=== PATIENT | female | born 1995 | race Caucasian/White ===

== ENCOUNTER 2019-10-19 19:30 | Emergency (ER) | payer BC, SELFPAY ==
[2019-10-19] MEDS ORDERED: LORazepam 0.5 MG Tab PO ONE (20:07)
--- NOTE | 2019-10-19 20:09 | EDM.PDOC ---
ED HPI GENERAL MEDICAL PROBLEM - General Chief Complaint: Chest Pain Stated Complaint: CHEST PAIN EVELATED PULSE Time Seen by Provider: 10/19/19 20:01 Source of Information: Reports: Patient, Family, RN Notes Reviewed History Limitations: Reports: No Limitations - History of Present Illness INITIAL COMMENTS - FREE TEXT/NARRATIVE: 24-year-old female presents emergency department a complaint of chest pain, she has had problems with palpitations is currently being evaluated by her primary care provider has completed a 48-hour Holter monitor however has not received results yet. She states the chest pain became worse today she has had a few events in the past but very short in duration. This particular event started at 630 this evening noticed that her heart was beating fast and that she feels more short of breath the only medication she takes is injectable control - Related Data Allergies Allergy/AdvReac Type Severity Reaction Status Date / Time No Known Allergies Allergy Verified 10/19/19 19:51 Home Meds: Home Meds medroxyPROGESTERone Acetate [Depo-Subq Provera 104] 104 mg SQ ASDIRECTED [History] Past Medical History - Past Health History Medical/Surgical History: Denies Medical/Surgical History Social & Family History - Tobacco Use Smoking Status *Q: Never Smoker ED ROS GENERAL - Review of Systems Review Of Systems: See Below Constitutional: Reports: No Symptoms HEENT: Reports: No Symptoms Respiratory: Reports: Shortness of Breath Cardiovascular: Reports: Chest Pain, Palpitations GI/Abdominal: Reports: No Symptoms : Reports: No Symptoms Musculoskeletal: Reports: No Symptoms ED EXAM, GENERAL - Physical Exam Exam: See Below Exam Limited By: No Limitations General Appearance: Alert, WD/WN, No Apparent Distress Respiratory/Chest: No Respiratory Distress, Lungs Clear, Normal Breath Sounds, No Accessory Muscle Use, Chest Non-Tender Cardiovascular: No Murmur, Tachycardia GI/Abdominal: Soft, Non-Tender Course - Vital Signs Last Recorded V/S: Last Vital Signs Temp 98.0 F 10/19/19 19:58 Pulse 117 H 10/19/19 23:50 Resp 23 H 10/19/19 23:50 BP 128/86 10/19/19 23:50 Pulse Ox 97 10/19/19 23:50 - Orders/Labs/Meds Orders: Active Orders 24 hr Category Date Time Status Cardiac Monitoring [RC] .As Directed Care 10/19/19 20:06 Active EKG Documentation Completion [RC] ASDIRECTED Care 10/19/19 20:06 Active Peripheral IV Care [RC] . DIRECTED Care 10/19/19 22:02 Active Iopamidol [Isovue-370 (76%)] Med 10/19/19 22:30 Active 100 ml IV . DIRECTED Sodium Chloride 0.9% [Normal Saline] 1,000 ml Med 10/19/19 22:15 Active IV ASDIRECTED Sodium Chloride 0.9% [Normal Saline] 100 ml Med 10/19/19 22:30 Active IV ASDIRECTED Sodium Chloride 0.9% [Saline Flush] Med 10/19/19 22:02 Active 10 ml FLUSH ASDIRECTED PRN Peripheral IV Insertion Adult [OM.PC] Urgent Oth 10/19/19 22:02 Ordered EKG 12 Lead [EK] Stat Ther 10/19/19 20:06 Ordered Medication Orders Sodium Chloride (Normal Saline) 1,000 mls @ 500 mls/hr IV ASDIRECTED [facility] Last Admin: 10/19/19 22:46 Dose: 500 mls/hr Sodium Chloride (Normal Saline) 100 mls @ 3.5 mls/sec IV ASDIRECTED [facility] Last Admin: 10/19/19 22:29 Dose: 3.5 mls/sec Iopamidol (Isovue-370 (76%)) 100 ml IV . DIRECTED [facility] Last Admin: 10/19/19 22:29 Dose: 100 ml Sodium Chloride (Saline Flush) 10 ml FLUSH ASDIRECTED PRN PRN Reason: Keep Vein Open Last Admin: 10/19/19 22:28 Dose: 10 ml Admin: 10/19/19 22:21 Dose: 10 ml Labs: Laboratory Tests 10/19/19 10/19/19 10/19/19 Range/Units 20:21 20:21 20:21 WBC 7.8 (4.5-11.0) K/uL RBC 4.78 (3.30-5.50) M/uL Hgb 13.8 (12.0-15.0) g/dL Hct 43.0 (36.0-48.0) % MCV 90 (80-98) fL MCH 29 (27-31) pg MCHC 32 (32-36) % Plt Count 314 (150-400) K/uL Neut % (Auto) 70 H (36-66) % Lymph % (Auto) 19 L (24-44) % [place] % (Auto) 9 H (2-6) % Eos % (Auto) 2 (2-4) % Baso % (Auto) 0 (0-1) % D-Dimer, Quantitative 568 H (0.0-400.0) ng/mL Sodium 142 (140-148) mmol/L Potassium 4.6 (3.6-5.2) mmol/L Chloride 105 (100-108) mmol/L Carbon Dioxide 27 (21-32) mmol/L Anion Gap 10.4 (5.0-14.0) mmol/L BUN 9 (7-18) mg/dL Creatinine 0.8 (0.6-1.0) mg/dL Est Cr Clr Drug Dosing 88.93 mL/min Estimated GFR (MDRD) > 60 (>60) Glucose 103 (74-106) mg/dL Calcium 9.2 (8.5-10.1) mg/dL Total Bilirubin 0.6 (0.2-1.0) mg/dL AST 17 (15-37) U/L ALT 25 (12-78) U/L Alkaline Phosphatase 83 (46-116) U/L Troponin I < 0.017 (0.000-0.056) ng/mL Total Protein 7.7 (6.4-8.2) g/dL Albumin 3.9 (3.4-5.0) g/dL Globulin 3.8 H (2.3-3.5) g/dL Albumin/Globulin Ratio 1.0 L (1.2-2.2) Urine Opiates Screen (NEGATIVE) Ur Oxycodone Screen (NEGATIVE) Urine Methadone Screen (NEGATIVE) Ur Propoxyphene Screen (NEGATIVE) Ur Barbiturates Screen (NEGATIVE) Ur Tricyclics Screen (NEGATIVE) Ur Phencyclidine Scrn (NEGATIVE) Ur Amphetamine Screen (NEGATIVE) U Methamphetamines Scrn (NEGATIVE) Urine MDMA Screen (NEGATIVE) U Benzodiazepines Scrn (NEGATIVE) U Cocaine Metab Screen (NEGATIVE) U Marijuana (THC) Screen (NEGATIVE) 10/19/19 Range/Units 21:07 WBC (4.5-11.0) K/uL RBC (3.30-5.50) M/uL Hgb (12.0-15.0) g/dL Hct (36.0-48.0) % MCV (80-98) fL MCH (27-31) pg MCHC (32-36) % Plt Count (150-400) K/uL Neut % (Auto) (36-66) % Lymph % (Auto) (24-44) % [place] % (Auto) (2-6) % Eos % (Auto) (2-4) % Baso % (Auto) (0-1) % D-Dimer, Quantitative (0.0-400.0) ng/mL Sodium (140-148) mmol/L Potassium (3.6-5.2) mmol/L Chloride (100-108) mmol/L Carbon Dioxide (21-32) mmol/L Anion Gap (5.0-14.0) mmol/L BUN (7-18) mg/dL Creatinine (0.6-1.0) mg/dL Est Cr Clr Drug Dosing mL/min Estimated GFR (MDRD) (>60) Glucose (74-106) mg/dL Calcium (8.5-10.1) mg/dL Total Bilirubin (0.2-1.0) mg/dL AST (15-37) U/L ALT (12-78) U/L Alkaline Phosphatase (46-116) U/L Troponin I (0.000-0.056) ng/mL Total Protein (6.4-8.2) g/dL Albumin (3.4-5.0) g/dL Globulin (2.3-3.5) g/dL Albumin/Globulin Ratio (1.2-2.2) Urine Opiates Screen Negative (NEGATIVE) Ur Oxycodone Screen Negative (NEGATIVE) Urine Methadone Screen Negative (NEGATIVE) Ur Propoxyphene Screen Negative (NEGATIVE) Ur Barbiturates Screen Negative (NEGATIVE) Ur Tricyclics Screen Negative (NEGATIVE) Ur Phencyclidine Scrn Negative (NEGATIVE) Ur Amphetamine Screen Negative (NEGATIVE) U Methamphetamines Scrn Negative (NEGATIVE) Urine MDMA Screen Negative (NEGATIVE) U Benzodiazepines Scrn Negative (NEGATIVE) U Cocaine Metab Screen Negative (NEGATIVE) U Marijuana (THC) Screen Negative (NEGATIVE) Meds: Medications Generic Name Dose Route Start Last Admin Trade Name Freq PRN Reason Stop Dose Admin Sodium Chloride 1,000 mls @ 500 mls/hr 10/19/19 22:15 10/19/19 22:46 Normal Saline IV 500 mls/hr ASDIRECTED GREG Administration Sodium Chloride 100 mls @ 3.5 mls/sec 10/19/19 22:30 10/19/19 22:29 Normal Saline IV 3.5 mls/sec ASDIRECTED GREG Administration Iopamidol 100 ml 10/19/19 22:30 10/19/19 22:29 Isovue-370 (76%) IV 100 ml . DIRECTED GREG Administration Sodium Chloride 10 ml 10/19/19 22:02 10/19/19 22:28 Saline Flush FLUSH 10 ml ASDIRECTED PRN Administration Keep Vein Open Discontinued Medications Generic Name Dose Route Start Last Admin Trade Name Freq PRN Reason Stop Dose Admin Acetaminophen 650 mg 10/19/19 22:02 10/19/19 22:19 Tylenol PO 10/19/19 22:03 650 mg NOW ONE Administration Al Hydroxide/Mg Hydroxide 15 0 ml 10/19/19 23:33 10/19/19 23:40 ml/ Lidocaine HCl 15 ml PO 10/19/19 23:34 30 ml ONETIME ONE Administration Lorazepam 0.5 mg 10/19/19 20:07 10/19/19 20:14 Ativan PO 10/19/19 20:08 0.5 mg ONETIME ONE Administration Sodium Chloride 10 ml 10/19/19 22:16 Saline Flush FLUSH 10/19/19 22:17 ONETIME ONE Departure - Departure Time of Disposition: 00:21 Disposition: Home, Self-Care 01 Condition: Fair Clinical Impression: Atypical chest pain Referrals: Mica Alves CNM [Primary Care Provider] - Forms: ED Department Discharge Additional Instructions: Please followup with your primary care provider in 1-2 days if not better, please call return to the emergency department with worsening of symptoms. Sepsis Event Note - Evaluation Sepsis Screening Result: No Definite Risk - Focused Exam Vital Signs: Vital Signs Temp Pulse Resp BP Pulse Ox 10/19/19 23:35 108 H 17 129/68 98 10/19/19 23:05 114 H 21 H 136/84 96 10/19/19 22:06 117 H 23 H 128/86 97 10/19/19 21:41 107 H 19 130/74 99 10/19/19 21:07 107 H 20 139/86 97 10/19/19 19:58 98.0 F 109 H 16 129/79 98 10/19/19 19:49 98.0 F 109 H 16 129/79 98 Date Exam was Performed: 10/20/19 Time Exam was Performed: 00:19 - My Orders Last 24 Hours: My Active Orders 10/19/19 20:06 Cardiac Monitoring [RC] .As Directed EKG Documentation Completion [RC] ASDIRECTED EKG 12 Lead [EK] Stat 10/19/19 22:02 Peripheral IV Care [RC] . DIRECTED Sodium Chloride 0.9% [Saline Flush] 10 ml FLUSH ASDIRECTED PRN Peripheral IV Insertion Adult [OM.PC] Urgent 10/19/19 22:15 Sodium Chloride 0.9% [Normal Saline] 1,000 ml IV ASDIRECTED 10/19/19 22:30 Iopamidol [Isovue-370 (76%)] 100 ml IV . DIRECTED Sodium Chloride 0.9% [Normal Saline] 100 ml IV ASDIRECTED - Assessment/Plan Last 24 Hours: My Active Orders 10/19/19 20:06 Cardiac Monitoring [RC] .As Directed EKG Documentation Completion [RC] ASDIRECTED EKG 12 Lead [EK] Stat 10/19/19 22:02 Peripheral IV Care [RC] . DIRECTED Sodium Chloride 0.9% [Saline Flush] 10 ml FLUSH ASDIRECTED PRN Peripheral IV Insertion Adult [OM.PC] Urgent 10/19/19 22:15 Sodium Chloride 0.9% [Normal Saline] 1,000 ml IV ASDIRECTED 10/19/19 22:30 Iopamidol [Isovue-370 (76%)] 100 ml IV . DIRECTED Sodium Chloride 0.9% [Normal Saline] 100 ml IV ASDIRECTED Plan: Assessment Acuity = acute Site and laterality = atypical chest pain Etiology = unknown etiology Manifestations = tachycardia Location of injury = Home Lab values = CBC, CMP unremarkable troponin was negative d-dimer was elevated 568 chest x-ray shows questionable area in the hilar area however CT scan was unremarkable no pulmonary embolism Plan She had some relief with GI cocktail she remained tachycardic 1 10- 20 while in the emergency department, I have her follow-up with her primary care in the next 1 to 2 days for reevaluation as well as turn the results of the Holter monitor This note was dictated using dragon voice recognition software please call with any questions on syntax or grammar.
--- NOTE | 2019-10-19 21:39 | CRLCR ---
INDICATION: Chest Pain TECHNIQUE: Chest radiograph 2 views COMPARISON: None FINDINGS: Moderate degradation of image quality noted due to body habitus. Mediastinum: There is mild increased asymmetric density seen in the left hilum. The heart silhouette is normal in size and morphology. Lung: Both lungs are unremarkable in appearance with small lung volumes. No sign of pleural effusion seen. No pneumothorax is identified. Bone and Soft tissue: Unremarkable for age. IMPRESSION: 1. There is mild increased asymmetric density seen in the left hilum. Comparison with any prior outside imaging is recommended. If these cannot be obtained, follow up outpatient chest CT recommended to exclude hilar adenopathy. Dictated by Brendon Sauceda MD @ 10/19/2019 9:37:04 PM Dictated by: Brendon Sauceda MD @ 10/19/2019 21:37:14 (Electronically Signed)
[2019-10-19] MEDS ORDERED: Acetaminophen 325 MG Tab PO ONE (22:02)
[2019-10-19] MEDS ORDERED: Sodium Chloride 0.9% 1,000 ML IV SCH (22:15)
[2019-10-19] MEDS ORDERED: Sodium Chloride 0.9% 10 ML Syringe FLUSH ONE (22:16)
[2019-10-19] MEDS: Sodium Chloride 0.9% 10 ML Syringe FLUSH PRN ×2 (22:21→22:28)
[2019-10-19] MEDS ORDERED: Sodium Chloride 0.9% 100 ML IV SCH (22:30)
[2019-10-19] MEDS ORDERED: Iopamidol 755 Mg/ML 100 ML Bottle IV SCH (22:30)
--- NOTE | 2019-10-19 23:28 | CRLCT ---
TECHNIQUE: IV contrast-enhanced CT chest, pulmonary embolism protocol. 100 mL Isovue-370 injected. INDICATION: Tachycardia, shortness of breath, elevated D-dimer. FINDINGS: No pulmonary emboli. Shallow inspiration. Lungs clear. No pleural or pericardial effusions. No thoracic lymphadenopathy by CT size criteria. Chest wall is unremarkable. Visualized upper abdomen is unremarkable. IMPRESSION: Normal chest CT. No pulmonary emboli. Dictated by Bakari Alexandre MD @ 10/19/2019 11:25:58 PM Please note that all CT scans at this facility use dose modulation, iterative reconstruction, and/or weight-based dosing when appropriate to reduce radiation dose to as low as reasonably achievable. Dictated by: Bakari Alexandre MD @ 10/19/2019 23:26:05 (Electronically Signed)
[2019-10-19] MEDS ORDERED: Alum Hydrox/Mag Hydrox/Simeth 15 ML, Lidocaine 2% 15 ML PO ONE ×2 (23:33)
== END 2019-10-20 00:40 | disposition home or self-care (01) ==
LOC: JP.ED 19:30
DX: R07.89 Other chest pain (principal)
CPT/HCPCS: 36415; 71046; 71275; 80053; 80305; 84484; 85025; 85379; 93005; 96360; 96361; 99285; A9270; J7030; J7050; Q9967